=== PATIENT | male | born 1995 | race Caucasian/White ===

== ENCOUNTER 2019-02-23 18:13 | Emergency (ER) | payer SELFPAY ==
[~2019-02-23] VITALS: Ht 177.8 cm; Wt 83.6 kg
[2019-02-23] MEDS ORDERED: ALBU8HFA IH (18:31)
[2019-02-23] MEDS ORDERED: ALBUTEROL SULFATE 5 MG/ML 20 ML NEB SOLN [BULK] NEB ONE (18:45)
[2019-02-23] MEDS ORDERED: MethylPREDNISolone SOD SUCC 125 MG/2 ML VIAL IM ONE (18:45)
[2019-02-23 19:19] LABS: BASOPHILS % (AUTO) 0.6 % (0.0-2.0); EOSINOPHILS % (AUTO) 4.6 % (1.0-6.0); HEMATOCRIT 45.6 % (41-53); HEMOGLOBIN 15.4 g/dL (13.5-17.5); LYMPHOCYTES % (AUTO) 21.6 % (22.0-44.0); MEAN CORPUSCULAR HEMOGLOBIN 30.8 pg (26.0-34.0); MEAN CORPUSCULAR HGB CONC 33.7 G/dL (31.0-37.0); MEAN CORPUSCULAR VOLUME 91 fL (80-100); MONOCYTES # (AUTO) 0.8 K/uL (0.1-1.0); MONOCYTES % (AUTO) 8.1 % (2.0-9.0); NEUTROPHILS # (AUTO) 6.2 K/uL (1.8-7.7); NEUTROPHILS % (AUTO) 65.1 % (40.0-70.0); PLATELET COUNT (AUTO) 268 K/uL (150-450); RED CELL DISTRIBUTION WIDTH 13.1 % (11.5-14.5)
[2019-02-23 19:38] LABS: ANION GAP 11 mmol/L (8-16); CALCIUM, TOTAL 8.8 mg/dL (8.8-10.5); CARBON DIOXIDE 25 mmol/L (22-29); CHLORIDE 102 mmol/L (98-107); CREATININE 1.06 mg/dL (0.60-1.30); GLOMERULAR FILTR. RATE CALC > 60 mL/min (>60); GLUCOSE,RANDOM 100 mg/dL (70-110); POTASSIUM 3.5 mmol/L (3.5-5.1); SODIUM SERUM 138 mmol/L (136-145); UREA NITROGEN, BLOOD 15 mg/dL (7-18)
[2019-02-23 19:43] LABS: ALANINE AMINOTRANSFERASE 32 U/L (12-78); ALKALINE PHOSPHATASE 66 U/L (46-116); ASPARTATE AMINOTRANSFERASE 22 U/L (15-37); BILIRUBIN,TOTAL 0.3 mg/dL (0.1-1.0); TOTAL PROTEIN, SERUM 7.5 g/dL (6.4-8.2)
[2019-02-23 19:44] LABS: B-TYPE NATRIURETIC PEPTIDE < 5 pg/mL (0-100)
[2019-02-23] MEDS ORDERED: EPINEPHrine 1:1,000 [1 MG/ML] AMP SQ ONE (20:00)
[2019-02-23] MEDS ORDERED: IPRATROPIUM BROMIDE 0.5 MG/2.5 ML NEB SOLUTION NEB ONE (20:30)
[2019-02-23 22:53] VITALS: BP 140/80
== END 2019-02-23 22:56 | disposition home or self-care (01) ==
LOC: EMS 18:15
DX: J45.901 Unspecified asthma with (acute) exacerbation (principal); I50.9 Heart failure, unspecified; Z88.8 Allergy status to other drugs, medicaments and biological substances; Z88.2 Allergy status to sulfonamides
CPT/HCPCS: 36415; 71045; 80053; 83880; 84484; 85025; 93005; 94644; 94645; 96372; 99285; G0480; J0171; J2930

== ENCOUNTER 2020-09-05 16:22 | Emergency (ER) | payer MEDICAID ==
[~2020-09-05] VITALS: Ht 182.9 cm; Wt 100.0 kg
[~2020-09-05 16:22] MED LIST: ALBU8HFA IH
[2020-09-05 18:48] VITALS: BP 149/86
== END 2020-09-05 18:54 ==
LOC: EMS 16:24
DX: S80.02XA Contusion of left knee, initial encounter (principal); S20.312A Abrasion of left front wall of thorax, initial encounter; S30.811A Abrasion of abdominal wall, initial encounter; V47.5XXA Car driver injured in collision with fixed or stationary object in traffic accident, initial encounter; Y93.89 Activity, other specified; Y92.488 Other paved roadways as the place of occurrence of the external cause; Y99.8 Other external cause status
CPT/HCPCS: 76700; 99284; 71045-TC

== ENCOUNTER 2021-08-05 19:51 | Emergency (ER) | payer MEDICAID, OTHER ==
[~2021-08-05] VITALS: Ht 177.8 cm; Wt 109.1 kg
[2021-08-05] MEDS ORDERED: IPRATROPIUM BROMIDE 0.5 MG/2.5 ML NEB SOLUTION NEB ONE (20:30)
[2021-08-05] MEDS ORDERED: ALBUTEROL SULFATE 5 MG/ML 20 ML NEB SOLN [BULK] NEB ONE ×2 (20:30→22:00)
[2021-08-05] MEDS ORDERED: MethylPREDNISolone SOD SUCC 125 MG/2 ML VIAL IVP ONE (20:30)
[2021-08-05 20:55] LABS: BASOPHILS % (AUTO) 0.4 % (0.0-2.0); EOSINOPHILS % (AUTO) 4.1 % (1.0-6.0); HEMATOCRIT 43.5 % (41-53); HEMOGLOBIN 15.1 g/dL (13.5-17.5); LYMPHOCYTES % (AUTO) 21.5 % (22.0-44.0); MEAN CORPUSCULAR HEMOGLOBIN 30.2 pg (26.0-34.0); MEAN CORPUSCULAR HGB CONC 34.8 G/dL (31.0-37.0); MEAN CORPUSCULAR VOLUME 87 fL (80-100); MONOCYTES # (AUTO) 0.8 K/uL (0.1-1.0); MONOCYTES % (AUTO) 8.1 % (2.0-9.0); NEUTROPHILS # (AUTO) 6.1 K/uL (1.8-7.7); NEUTROPHILS % (AUTO) 65.9 % (40.0-70.0); PLATELET COUNT (AUTO) 294 K/uL (150-450); RED CELL DISTRIBUTION WIDTH 13.4 % (11.5-14.5)
[2021-08-05 21:06] LABS: ANION GAP 7 mmol/L (8-16); CALCIUM, TOTAL 8.9 mg/dL (8.8-10.5); CARBON DIOXIDE 28 mmol/L (22-29); CHLORIDE 104 mmol/L (98-107); CREATININE 1.13 mg/dL (0.60-1.30); GLOMERULAR FILTR. RATE CALC > 60 mL/min (>60); GLUCOSE,RANDOM 107 mg/dL (70-110); POTASSIUM 3.6 mmol/L (3.5-5.1); SODIUM SERUM 139 mmol/L (136-145); UREA NITROGEN, BLOOD 17 mg/dL (7-18)
[2021-08-05 21:11] LABS: ALANINE AMINOTRANSFERASE 68 U/L (12-78); ALBUMIN 4.1 g/dL (3.4-5.0); ALKALINE PHOSPHATASE 71 U/L (46-116); ASPARTATE AMINOTRANSFERASE 29 U/L (15-37); BILIRUBIN,TOTAL 0.6 mg/dL (0.1-1.0); TOTAL PROTEIN, SERUM 8.4 g/dL (6.4-8.2)
[2021-08-05] MEDS ORDERED: EPINEPHrine 1:1,000 [1 MG/ML] AMP SQ ONE (22:00)
[2021-08-05 22:07] LABS: B-TYPE NATRIURETIC PEPTIDE < 5 pg/mL (0-100)
[2021-08-05] MEDS ORDERED: ALBU8.5H8 IH (23:12)
[2021-08-05] MEDS ORDERED: PRED20 PO (23:12)
[2021-08-05 23:24] VITALS: BP 135/82
== END 2021-08-05 23:40 | disposition home or self-care (01) ==
LOC: EMS 19:51
DX: J45.901 Unspecified asthma with (acute) exacerbation (principal); Z88.2 Allergy status to sulfonamides; Z88.8 Allergy status to other drugs, medicaments and biological substances; Z79.899 Other long term (current) drug therapy
CPT/HCPCS: 36415; 71045; 80053; 83880; 84484; 85025; 93005; 96372; 96374; 99285; J0171; J2930; 94644